=== PATIENT | male | born 1935 | race Caucasian/White ===

== ENCOUNTER 2023-08-26 17:45 | Observation (INO) ==
[2023-08-26 18:37] LABS: ABS Lymphocytes 0.5 10^3/uL (1.0-4.8); ABS Monocytes 0.8 10^3/uL (0.0-1.1); ABS Neutrophils 5.4 10^3/uL (1.5-7.6); ABS Nucleated RBC 0.01 10^3/ul; Eosinophil % 0.1 %; Hematocrit 38.3 % (38-53); Lymphocyte % 7.9 %; Mean Corpuscular Hgb Conc 33.8 g/dL (31-36); Mean Corpuscular Volume 97.6 fL (80-97); Mean Platelet Volume 7.4 fL (7.5-11.2); Nucleated Red Blood Cells % 0.1 %/100WBC (0.0-0.8); Platelet Count 181 10^3/uL (150-450); Red Blood Count 3.92 10^6/uL (4.06-5.63); White Blood Count 6.7 10^3/uL (3.6-10.2)
[2023-08-26 18:56] LABS: Albumin 3.8 g/dL (3.2-5.2); C Reactive Protein 79.75 mg/L (<8.01); Calcium 9.5 mg/dL (8.6-10.3); Creatinine, Serum 0.77 mg/dL (0.67-1.17); Globulin 3.9 g/dL (2-4); INR 1.5 (0.83-1.13); Magnesium 1.9 mg/dL (1.9-2.7); Phosphorus 4.2 mg/dL (2.5-5.0); Total Bilirubin 0.9 mg/dL (0.2-1.0); Total Protein 7.7 g/dL (6.4-8.9); eGFR CKD-EPI 87.2 (>60)
[2023-08-26] MEDS: Iohexol 350 (CONTRAST) 500 ML MDV IV ONE (19:47)
[2023-08-26 20:00] LABS: High Sensitivity Troponin 1 Hr 97 pg/mL (<20)
[2023-08-26 20:48] LABS: Urine Appearance Clear; Urine Bilirubin Negative (Negative); Urine Blood Negative (Negative); Urine Color Yellow; Urine Glucose Negative (Negative); Urine Ketones Negative (Negative); Urine Nitrite Negative (Negative); Urine Protein 1+ (>=30 mg/dL) (Negative); Urine Urobilinogen Negative (Negative); Urine pH 5.5 (5.0-8.0)
[2023-08-26 20:59] LABS: Urine Bacteria Absent /HPF (Absent); Urine Red Blood Cell 1+(3-5/hpf) /HPF (0-Trace); Urine Squamous Epithelial Cell Present /HPF (Absent); Urine White Blood Cell Trace(0-5/hpf) /HPF (0-Trace)
[2023-08-26] MEDS: cefTRIAXone 1 gm/50 mL D5W 1 GM/50 ML BAG IV ONE (21:15)
[2023-08-26] MEDS: Azithromycin 500 mg/250 ml NS 500 MG/250 ML BAG IVPB ONE (21:15)
[2023-08-27 01:10] LABS: Creatinine, Serum 0.67 mg/dL (0.67-1.17); eGFR CKD-EPI 90.9 (>60)
[2023-08-27] MEDS: Heparin DRIP 25,000 UNITS BAG 25,000 UNITS/250 ML BAG IV SCH (01:14)
[2023-08-27] MEDS: Furosemide 40 mg/4 ml IV VIAL IV SLOW PU ONE (01:15)
[2023-08-27 01:31] LABS: ABS Lymphocytes 0.3 10^3/uL (1.0-4.8); ABS Monocytes 0.6 10^3/uL (0.0-1.1); ABS Neutrophils 5.6 10^3/uL (1.5-7.6); ABS Nucleated RBC 0.01 10^3/ul; Hemoglobin 11.6 g/dL (13.2-16.3); Lymphocyte % 4.8 %; Mean Corpuscular Hemoglobin 33.4 pg (27-33); Mean Corpuscular Hgb Conc 34.2 g/dL (31-36); Mean Corpuscular Volume 97.5 fL (80-97); Mean Platelet Volume 7.7 fL (7.5-11.2); Nucleated Red Blood Cells % 0.1 %/100WBC (0.0-0.8); Platelet Count 161 10^3/uL (150-450); Red Blood Count 3.49 10^6/uL (4.06-5.63); Red Cell Distribution Width 15.2 % (12-17); White Blood Count 6.6 10^3/uL (3.6-10.2)
[2023-08-27 05:58] LABS: Calcium 8.8 mg/dL (8.6-10.3); Creatinine, Serum 0.89 mg/dL (0.67-1.17); Potassium 5.1 mmol/L (3.5-5.0); eGFR CKD-EPI 83.5 (>60)
[2023-08-27] MEDS: Heparin 5000 UNITS/ML 1 mL VIAL IV SCH (08:49)
[2023-08-27 13:01] VITALS: BP 120/67
[2023-08-27] MEDS ORDERED: cefTRIAXone 1 gm/50 mL D5W 1 GM/50 ML BAG IV SCH (21:00)
[2023-08-27] MEDS ORDERED: Azithromycin 500 mg/250 ml NS 500 MG/250 ML BAG IVPB SCH (22:00)
== END 2023-08-27 13:02 | disposition short-term general hospital (02) ==
LOC: ED 17:45 → EDHOLD 17:45 → SUATTDRO 23:10 → EDHOLD 08-27 13:01
PROVIDERS: ADMIT Internal Medicine; ATTEND Internal Medicine